=== PATIENT | female | born 1970 | race Hispanic/Latino ===

== ENCOUNTER 2020-07-16 12:00 | Inpatient (IN) | payer OTHER ==
[~2020-07-16] VITALS: Ht 154.9 cm; Wt 69.9 kg
[2020-07-16 14:24] LABS: BASOPHILS % (AUTO) 0.4 % (0.0-5.0); EOSINOPHILS % (AUTO) 2.2 % (0.0-8.0); HEMATOCRIT 39.3 % (36-48); LYMPHOCYTES % (AUTO) 20.7 % (21.0-51.0); MEAN CORPUSCULAR HEMOGLOBIN 29.5 pg (27.0-33.0); MEAN CORPUSCULAR HGB CONC 32.1 g/dL (32.0-36.0); MONOCYTES % (AUTO) 5.2 % (3.0-13.0); NEUTROPHILS % (AUTO) 71.4 % (40.0-77.0); PLATELET COUNT (AUTO) 217 K/uL (130-400); RED BLOOD CELL COUNT(AUTO) 4.27 MIL/uL (4.00-5.50); WHITE BLOOD COUNT (AUTO) 7.3 K/uL (4.8-10.8)
[2020-07-16 14:25] LABS: APPEARANCE,URINE Clear (CLEAR); BILIRUBIN,URINE Negative (NEGATIVE); COLOR,URINE Yellow (YELLOW); GLUCOSE, URINE (UA) Negative (NEGATIVE); KETONES,URINE Negative (NEGATIVE); LEUKOCYTE ESTERASE ,URINE Moderate (NEGATIVE); NITRATE,URINE Negative (NEGATIVE); OCCULT BLOOD,URINE Negative (NEGATIVE); PROTEIN,URINE Negative (NEGATIVE); UROBILINOGEN,URINE 0.2 mg/dL (0.2-1.0)
[2020-07-16 14:36] LABS: INR 0.95 (0.85-1.15); PROTHROMBIN TIME 10.4 SEC (9.6-11.6); RBC,URINE 0-1 /HPF (0-1)
[2020-07-16 14:37] LABS: BACTERIA,URINE Rare /HPF (None Seen); PARTIAL THROMBOPLASTIN TIME 26.6 SEC (26.3-35.5)
[2020-07-16 14:38] LABS: MUCUS,URINE Few LPF (None Seen); SQUAMOUS EPITHELIAL CELL,UR Few /HPF (0-2)
[2020-07-17] MEDS ORDERED: omega xl PO (10:46)
[2020-07-17] MEDS ORDERED: Vitamin E PO (10:46)
[2020-07-17] MEDS ORDERED: IBUP-2070 PO (10:46)
[2020-07-17] MEDS ORDERED: LETR2.5T7 PO (10:46)
[2020-07-17] MEDS ORDERED: CORDYCEPS PO (10:46)
[2020-07-18] MEDS ORDERED: SODIUM CHLORIDE 0.9% 1000ML 1,000 ML IV SCH (08:00)
[2020-07-18] MEDS ORDERED: CEFAZOLIN SODIUM 1 GM VIAL IVP ONE (08:00)
[2020-07-25] VITALS (22 sets, daily range): BP systolic 12–148; BP diastolic 7–87
[2020-07-25] MEDS ORDERED: CEFAZOLIN SODIUM 1 GM VIAL ONE ×4 (09:32→14:39)
[2020-07-25] MEDS ORDERED: LIDOCAINE 1%-EPI 1:100,000 20 ML VIAL IJ ONE (09:32)
[2020-07-25] MEDS ORDERED: GENTAMICIN SULFATE 80 MG/2 ML VIAL ONE (09:32)
[2020-07-25] MEDS ORDERED: BUPIVACAINE/EPI/PF 0.5% 30ML VIAL IJ ONE (09:33)
[2020-07-25] MEDS ORDERED: METHYLENE BLUE 5 MG/ML AMP ONE (09:33)
[2020-07-25] MEDS ORDERED: MIDAZOLAM HCL 1 MG/ML 2ML VIAL ONE (11:04)
[2020-07-25] MEDS ORDERED: SUCCINYLCHOLINE 200MG/10ML SYR ONE ×2 (11:04→11:19)
[2020-07-25] MEDS ORDERED: LIDOCAINE PF 100MG/5ML (2%) SYRINGE 5ML ONE ×2 (11:04→11:19)
[2020-07-25] MEDS ORDERED: LACTATED RINGERS 1000ML 1,000 ML IV ONE (11:04)
[2020-07-25] MEDS ORDERED: ROCURONIUM 10MG/1ML SYR 10 MG/ML ML ONE (11:04)
[2020-07-25] MEDS ORDERED: PROPOFOL 10 MG/ML 20ML VIAL IV ONE ×2 (11:04→16:24)
[2020-07-25] MEDS ORDERED: ONDANSETRON HCL 4 MG/2 ML VIAL ONE (11:04)
[2020-07-25] MEDS ORDERED: DEXAMETHASONE SOD PHOSPHATE 10MG/ML 1ML VIAL ONE (11:04)
[2020-07-25] MEDS ORDERED: GLYCOPYRROLATE 1 MG/5 ML SYRINGE ONE (11:04)
[2020-07-25] MEDS ORDERED: NEOSTIGMINE 5MG/5ML SYR IV ONE (11:04)
[2020-07-25] MEDS ORDERED: FENTANYL CITRATE PF 50 MCG/1 ML 2ML VIAL ONE ×3 (11:05→14:40)
[2020-07-25] MEDS ORDERED: SODIUM CHLORIDE 0.9% 1000ML 1,000 ML IV SCH (14:30)
[2020-07-25] MEDS ORDERED: LIDOCAINE HCL 4% LTA SOL 4 ML VIAL ONE (14:31)
[2020-07-25] MEDS ORDERED: PHENYLEPHRINE HCL 10 MG/ML 1ML VIAL IV ONE (16:09)
[2020-07-25] MEDS ORDERED: MEPERIDINE-PF 25 MG/ML SYG ONE (17:04)
[2020-07-25] MEDS: ONDANSETRON HCL 4 MG/2 ML VIAL IVP PRN (19:21)
[2020-07-25] MEDS: MORPHINE 4 MG SYG (4MG/1ML) IV PRN ×2 (19:22→22:28)
[2020-07-25] MEDS: GABAPENTIN 300 MG CAPSULE PO SCH (22:06)
[2020-07-25] MEDS: CELECOXIB 200 MG CAP PO SCH (22:07)
[2020-07-25] MEDS: CEFAZOLIN SODIUM 1 GM VIAL IVP SCH (22:17)
[2020-07-26 03:12] VITALS: BP 127/73
[2020-07-26] MEDS: MORPHINE 4 MG SYG (4MG/1ML) IV PRN ×2 (03:25→07:07)
[2020-07-26] MEDS: ONDANSETRON HCL 4 MG/2 ML VIAL IVP PRN (03:30)
[2020-07-26] MEDS: CEFAZOLIN SODIUM 1 GM VIAL IVP SCH ×2 (05:27→12:00)
[2020-07-26 06:58] LABS: BASOPHILS % (AUTO) 0.1 % (0.0-5.0); EOSINOPHILS % (AUTO) 0.1 % (0.0-8.0); HEMATOCRIT 34.4 % (36-48); LYMPHOCYTES % (AUTO) 8.2 % (21.0-51.0); MEAN CORPUSCULAR HEMOGLOBIN 29.3 pg (27.0-33.0); MEAN CORPUSCULAR HGB CONC 32.3 g/dL (32.0-36.0); MEAN CORPUSCULAR VOLUME 90.8 fL (79-99); MONOCYTES % (AUTO) 6.1 % (3.0-13.0); NEUTROPHILS % (AUTO) 85.2 % (40.0-77.0); PLATELET COUNT (AUTO) 192 K/uL (130-400); RED BLOOD CELL COUNT(AUTO) 3.79 MIL/uL (4.00-5.50); RED CELL DISTRIBUTION WIDTH 13.1 % (11.0-15.5); WHITE BLOOD COUNT (AUTO) 14.5 K/uL (4.8-10.8)
[2020-07-26 07:10] LABS: BILIRUBIN,TOTAL 0.4 mg/dL (0.2-1.0); CREATININE 0.6 mg/dL (0.5-1.5); TOTAL PROTEIN, SERUM 6.8 g/dL (6.0-8.3)
[2020-07-26 07:17] VITALS: BP 131/74
[2020-07-26] MEDS: GABAPENTIN 300 MG CAPSULE PO SCH ×3 (09:10→21:34)
[2020-07-26] MEDS: CELECOXIB 200 MG CAP PO SCH ×2 (09:11→21:34)
[2020-07-26] MEDS ORDERED: PROMETHAZINE HCL 25 MG/ML 1ML AMPULE IM PRN (10:45)
[2020-07-26 11:36] VITALS: BP 142/76
[2020-07-26] MEDS ORDERED: KETOROLAC 15MG/ML VIAL (15MG/ML) IV PRN (13:30)
[2020-07-26] MEDS: ACETAMINOPHEN-CODEINE 300/30MG TAB PO PRN (15:07)
[2020-07-26 15:22] VITALS: BP 142/76
[2020-07-26] MEDS ORDERED: MEPERIDINE-PF 25 MG/ML SYG ONE (17:50)
[2020-07-26] MEDS ORDERED: MEPERIDINE-PF 25 MG/ML SYG IVP PRN (18:00)
[2020-07-26 19:46] VITALS: BP 145/110
[2020-07-26 23:17] VITALS: BP 105/56
[2020-07-27] MEDS: ACETAMINOPHEN-CODEINE 300/30MG TAB PO PRN ×3 (00:59→13:44)
[2020-07-27 03:07] VITALS: BP 103/60
[2020-07-27 04:51] LABS: BASOPHILS % (AUTO) 0.2 % (0.0-5.0); EOSINOPHILS % (AUTO) 0.3 % (0.0-8.0); HEMATOCRIT 33.1 % (36-48); MEAN CORPUSCULAR HEMOGLOBIN 29.2 pg (27.0-33.0); MEAN CORPUSCULAR HGB CONC 31.7 g/dL (32.0-36.0); MEAN CORPUSCULAR VOLUME 92.2 fL (79-99); MONOCYTES % (AUTO) 8.9 % (3.0-13.0); NEUTROPHILS % (AUTO) 77.2 % (40.0-77.0); PLATELET COUNT (AUTO) 179 K/uL (130-400); RED BLOOD CELL COUNT(AUTO) 3.59 MIL/uL (4.00-5.50); RED CELL DISTRIBUTION WIDTH 13.2 % (11.0-15.5); WHITE BLOOD COUNT (AUTO) 11.2 K/uL (4.8-10.8)
[2020-07-27 05:01] LABS: POTASSIUM 4.6 mmol/L (3.5-5.1)
[2020-07-27 07:23] VITALS: BP 139/91
[2020-07-27] MEDS: CELECOXIB 200 MG CAP PO SCH ×2 (08:56→20:36)
[2020-07-27] MEDS: GABAPENTIN 300 MG CAPSULE PO SCH ×3 (08:56→20:36)
[2020-07-27 11:23] VITALS: BP 121/65
[2020-07-27 16:36] VITALS: BP 122/67
[2020-07-27 20:00] VITALS: BP 131/72
[2020-07-27 23:36] VITALS: BP 113/60
[2020-07-28] MEDS: ACETAMINOPHEN-CODEINE 300/30MG TAB PO PRN ×3 (02:17→17:33)
[2020-07-28 03:51] VITALS: BP 131/73
[2020-07-28 06:31] LABS: BASOPHILS % (AUTO) 0.2 % (0.0-5.0); EOSINOPHILS % (AUTO) 1.8 % (0.0-8.0); LYMPHOCYTES % (AUTO) 14.4 % (21.0-51.0); MEAN CORPUSCULAR HEMOGLOBIN 28.6 pg (27.0-33.0); MEAN CORPUSCULAR HGB CONC 31.2 g/dL (32.0-36.0); MEAN CORPUSCULAR VOLUME 91.6 fL (79-99); MONOCYTES % (AUTO) 7.6 % (3.0-13.0); NEUTROPHILS % (AUTO) 75.7 % (40.0-77.0); PLATELET COUNT (AUTO) 154 K/uL (130-400); RED BLOOD CELL COUNT(AUTO) 3.71 MIL/uL (4.00-5.50); RED CELL DISTRIBUTION WIDTH 13.2 % (11.0-15.5); WHITE BLOOD COUNT (AUTO) 9.5 K/uL (4.8-10.8)
[2020-07-28 07:27] VITALS: BP 117/57
[2020-07-28 07:32] LABS: CREATININE 0.5 mg/dL (0.5-1.5); POTASSIUM 4.3 mmol/L (3.5-5.1)
[2020-07-28] MEDS: CELECOXIB 200 MG CAP PO SCH (08:08)
[2020-07-28] MEDS: GABAPENTIN 300 MG CAPSULE PO SCH ×2 (08:08→14:14)
[2020-07-28 17:00] VITALS: BP 140/93
== END 2020-07-28 18:10 | disposition home health service (06) | DRG 581 ==
LOC: EDSTATUS 12:00 → DAHIP 07-25 10:07 → OBSVTOIN 07-25 10:07 → WSH 07-25 17:55
PROVIDERS: ADMIT Student in an Organized Health Care Education/Training Program; ATTEND Student in an Organized Health Care Education/Training Program
PROC: 07B60ZZ Excision of Left Axillary Lymphatic, Open Approach (ICD-10-PCS; principal; 2020-07-25 11:30)
PROC: 0HBU0ZZ Excision of Left Breast, Open Approach (ICD-10-PCS; 2020-07-25 11:30)
DX: C50.912 Malignant neoplasm of unspecified site of left female breast (principal); Z40.01 Encounter for prophylactic removal of breast; Z20.822 Contact with and (suspected) exposure to COVID-19; Z92.21 Personal history of antineoplastic chemotherapy
CPT/HCPCS: 36415; 80048; 80053; 81001; 85025; 85610; 85730; 87088; A4344; G0378; J0330; J0690; J1100; J1580; J2001; J2175; J2250; J2270; J2370; J2405; J2550; J2704; J2710; J3010; J3490; J7030; J7120; Q9968; U0003